=== PATIENT | male | born 1955 | race Caucasian/White ===

== ENCOUNTER 2018-09-24 13:57 | Outpatient (RCR) | payer MEDICARE, BC | END 2018-10-17 | disposition home or self-care (01) | LOC: WCC 13:57 | DX: L97.522 Non-pressure chronic ulcer of other part of left foot with fat layer exposed (principal); T86.821 Skin graft (allograft) (autograft) failure; Z86.718 Personal history of other venous thrombosis and embolism; Z79.899 Other long term (current) drug therapy | CPT/HCPCS: 11042; 15275; 29580; 29581; Q4187 ==

== ENCOUNTER 2018-10-22 10:59 | Outpatient (RCR) | payer MEDICARE, BC | END 2018-11-17 | disposition home or self-care (01) | LOC: WCC 10:59 | DX: L97.522 Non-pressure chronic ulcer of other part of left foot with fat layer exposed (principal); T86.821 Skin graft (allograft) (autograft) failure; Z86.718 Personal history of other venous thrombosis and embolism; Z79.899 Other long term (current) drug therapy | CPT/HCPCS: 15271; 29580; 29581; Q4131 ==

== ENCOUNTER 2018-12-24 10:35 | Outpatient (RCR) | payer MEDICARE, OTHER | END 2019-01-17 | disposition home or self-care (01) | LOC: WCC 10:35 | DX: L97.522 Non-pressure chronic ulcer of other part of left foot with fat layer exposed (principal); T86.821 Skin graft (allograft) (autograft) failure; L97.523 Non-pressure chronic ulcer of other part of left foot with necrosis of muscle; Z86.718 Personal history of other venous thrombosis and embolism; Z79.899 Other long term (current) drug therapy | CPT/HCPCS: 11043; 97605 ==

== ENCOUNTER 2019-01-21 10:59 | Outpatient (RCR) | payer MEDICARE, OTHER | END 2019-02-16 | disposition home or self-care (01) | LOC: WCC 10:59 | DX: L97.522 Non-pressure chronic ulcer of other part of left foot with fat layer exposed (principal); T86.821 Skin graft (allograft) (autograft) failure; L97.523 Non-pressure chronic ulcer of other part of left foot with necrosis of muscle; Z86.718 Personal history of other venous thrombosis and embolism; Z79.899 Other long term (current) drug therapy | CPT/HCPCS: 11043; 15275; 29580; G0463; Q4187 ==

== ENCOUNTER 2019-03-22 09:40 | Outpatient (RCR) | payer MEDICARE, OTHER | END 2019-04-19 | disposition home or self-care (01) | LOC: WCC 09:40 | DX: L97.522 Non-pressure chronic ulcer of other part of left foot with fat layer exposed (principal); T86.821 Skin graft (allograft) (autograft) failure; L97.523 Non-pressure chronic ulcer of other part of left foot with necrosis of muscle; L03.116 Cellulitis of left lower limb; Z86.718 Personal history of other venous thrombosis and embolism | CPT/HCPCS: 11042; 29580 ==

== ENCOUNTER 2019-04-22 09:38 | Outpatient (RCR) | payer MEDICARE, OTHER | END 2019-05-18 | disposition home or self-care (01) | LOC: WCC 09:38 | DX: L97.522 Non-pressure chronic ulcer of other part of left foot with fat layer exposed (principal); T86.821 Skin graft (allograft) (autograft) failure; L97.523 Non-pressure chronic ulcer of other part of left foot with necrosis of muscle; L03.116 Cellulitis of left lower limb; I82.492 Acute embolism and thrombosis of other specified deep vein of left lower extremity; Z86.718 Personal history of other venous thrombosis and embolism | CPT/HCPCS: 11042; 29580; 93925; 93970; 93971 ==

== ENCOUNTER 2019-04-22 13:02 | Outpatient (CLI) | payer MEDICARE, OTHER ==
--- NOTE | 2019-04-22 16:18 | Diagnostic Imaging Report ---
Indication: Left lower extremity pain and swelling. Technique: Duplex Doppler imaging performed from the left common femoral vein to the popliteal vein. FINDINGS: Normal compressibility demonstrated from the common femoral vein to the superficial femoral vein. Respiratory phasicity and good augmentation demonstrated on waveform analysis. There is no evidence of thrombosis. There is a wall adherent thrombus within part of the popliteal vein. This is likely chronic thrombus. No evidence of acute thrombosis. 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
== END 2019-04-22 15:02 | disposition home or self-care (01) ==
LOC: VAS 13:02
DX: M79.662 Pain in left lower leg (principal); R22.42 Localized swelling, mass and lump, left lower limb; I82.532 Chronic embolism and thrombosis of left popliteal vein
CPT/HCPCS: 93971

== ENCOUNTER 2019-05-03 12:56 | Outpatient (CLI) | payer MEDICARE, OTHER ==
--- NOTE | 2019-05-06 10:13 | Diagnostic Imaging Report ---
Indication: Nonhealing wound in left leg Technique: Grayscale and duplex images of the right lower extremity arteries Comparison: none Findings: Bilaterally, triphasic waveforms with sharp systolic peaks are seen at all levels including distally. No focal flow velocity elevation and no mendez scale abnormality to suggest significant stenosis. Impression: No sonographic evidence of lower extremity arterial insufficiency bilaterally
== END 2019-05-03 14:56 | disposition home or self-care (01) ==
LOC: VAS 12:56
DX: S81.802A Unspecified open wound, left lower leg, initial encounter (principal); S81.801A Unspecified open wound, right lower leg, initial encounter; X58.XXXA Exposure to other specified factors, initial encounter; Y92.9 Unspecified place or not applicable
CPT/HCPCS: 93925

== ENCOUNTER 2019-05-15 11:17 | Outpatient (CLI) | payer MEDICARE, OTHER ==
--- NOTE | 2019-05-16 10:25 | Diagnostic Imaging Report ---
Indication: Varicose veins, suspect. Greater saphenous vein reflux, history of lower extremity edema and wound Technique: Grayscale and duplex images of the bilateral greater saphenous veins Comparison: April 22, 2019 conventional one. Venous imaging Findings: On the right, greater saphenous vein demonstrates reflux, with periods of reflux lasting up to 3 seconds. This occurs downstream at and above the knee. There is edema of the subcutaneous fat. On the left, the greater saphenous vein is patent, demonstrates periods of reflux lasting up to 2.5 seconds. There is edema of the subcutaneous fat Impression: Positive for significant bilateral greater saphenous vein reflux
== END 2019-05-15 13:17 | disposition home or self-care (01) ==
LOC: VAS 11:17
DX: Z79.899 Other long term (current) drug therapy (principal)
CPT/HCPCS: 93970

== ENCOUNTER 2019-05-20 10:00 | Outpatient (RCR) | payer MEDICARE, OTHER | END 2019-06-18 | disposition home or self-care (01) | LOC: WCC 10:00 | DX: L97.522 Non-pressure chronic ulcer of other part of left foot with fat layer exposed (principal); T86.821 Skin graft (allograft) (autograft) failure; L97.523 Non-pressure chronic ulcer of other part of left foot with necrosis of muscle; L03.116 Cellulitis of left lower limb; I82.492 Acute embolism and thrombosis of other specified deep vein of left lower extremity; Z86.718 Personal history of other venous thrombosis and embolism; Z79.899 Other long term (current) drug therapy | CPT/HCPCS: 11042; G0463 ==

== ENCOUNTER 2019-07-30 21:56 | Emergency (ER) | payer MEDICARE, OTHER ==
[~2019-07-30] VITALS: Ht 182.9 cm; Wt 74.8 kg
--- NOTE | 2019-07-30 22:24 | NUR ---
ED Nurse Note: Patient walked into ED from home d/t medication refill for subutex. Patient aao x 4 and ambulatory with steady gait. Patient no c/o pain. Stable upon assessment.
[2019-07-30 22:25] VITALS: BP 135/72
--- NOTE | 2019-07-30 22:43 | NUR ---
ED Nurse Note: ERMD at bedside
[2019-07-30] MEDS ORDERED: BUPRENORPHINE HC8 MG SL (22:49)
[2019-07-30] MEDS ORDERED: OXYCONTIN60 MG ORAL (23:10)
--- NOTE | 2019-07-30 23:10 | Emergency Room Report ---
History of Present Illness General Chief Complaint: Medication Refill Source: Patient, Medical Record Present Illness HPI This is a 64-year-old male with a history of chronic pain. He takes Subutex 3 times a day. He said he ran out of Subutex. He get his mail order 270 tablets of 8 mg each. It supposed to last him 3 months. He said he is on his second month and he has no more. It turned out that the pharmacy gave him too much of the modafinil. He still has 3 extra bottles of it. Patient denies any withdrawal symptoms at this moment. No fever chills but no nausea no vomiting. He has been consistent with his prescription form [address] provider. The provider is Dr. Jeffery Husain. Patient has no other complaints. Allergies: Coded Allergies: No Known Allergies (Verified Allergy, Unknown, 01/11/08) COVID-19 Screening Contact w/high risk pt: No Recent Travel to affected area: No Experienced COVID-19 symptoms?: No Patient History Past Medical History: see triage record, old chart reviewed Past Surgical History: other Pertinent Family History: none Social History: Denies: smoking Immunizations: other Reviewed Nursing Documentation: PMH: Agreed; PSxH: Agreed Nursing Documentation-PMH Hx Hypertension: Yes Review of Systems Eye: Denies: eye pain, blurred vision ENT: Denies: ear pain, nose congestion, throat swelling Respiratory: Denies: cough, shortness of breath Cardiovascular: Denies: chest pain, palpitations Gastrointestinal: Denies: abdominal pain, diarrhea, nausea, vomiting Musculoskeletal: Denies: back pain, joint pain Skin: Denies: rash Neurological: Denies: headache, numbness Endocrine: Denies: increased thirst, increased urine Hematologic/Lymphatic: Denies: easy bruising All Other Systems: negative except mentioned in HPI Physical Exam Vital Signs Date Time Temp Pulse Resp B/P (MAP) Pulse Ox O2 Delivery O2 Flow Rate FiO2 07/30/19 22:12 97.7 76 18 137/70 (92) 99 Room Air Vitals normal Sp02 EP Interpretation: reviewed, normal General Appearance: well appearing, no apparent distress, alert Head: normocephalic, atraumatic Eyes: bilateral eye PERRL, bilateral eye EOMI ENT: hearing grossly normal, normal pharynx Neck: full range of motion, supple, no meningismus Respiratory: chest non-tender, lungs clear, normal breath sounds Cardiovascular #1: regular rate, rhythm, no murmur Gastrointestinal: normal bowel sounds, non tender, no mass, no organomegaly, no bruit, non-distended Musculoskeletal: back normal, normal range of motion, gait/station normal Psychiatric: mood/affect normal Medical Decision Making Diagnostic Impression: Primary Impression: Encounter for medication refill ER Course Patient here for refill on his medication. Unfortunately, I do not have the EMERALD exemption for Suboxone/Subutex. Explained to the patient that his extra bottle of modafinil may actually be Subutex and was just mislabeled. Told him to go back and check it. I will write for another opiate for equivalent of his medication. Last Vital Signs Date Time Temp Pulse Resp B/P (MAP) Pulse Ox O2 Delivery O2 Flow Rate FiO2 07/30/19 22:25 97.9 79 18 135/72 99 Room Air Status: improved Disposition: HOME, SELF-CARE Condition: Stable Scripts Oxycodone Hcl (OXYCONTIN) 60 Mg Tab.er.12h 60 MG ORAL EVERY 12 HOURS, #20 TAB 0 Refills Prov: Samir Hernandez MD 07/30/19 Referrals: Jose Clark MD (PCP) Patient Instructions: Medicine Refill at the Emergency Department Additional Instructions: Check your modafinil bottle to see if it is actually Subutex. Follow-up with your doctor tomorrow for refill your medication if needed. Return if symptoms worsen. Samir Hernandez MD July 30, 2019 23:10
[2019-07-30 23:13] VITALS: BP 132/78
--- NOTE | 2019-07-30 23:13 | NUR ---
ER DISCHARGE NOTE: Patient is cleared to be discharged per ERMD, pt is aox4, on room air, with stable vital signs. pt was given dc and prescription instructions, pt was able to verbalize understanding, pt id band removed. pt is able to ambulate with steady gait. pt took all belongings. pt stable upon discharge.
[2019-07-31] MEDS ORDERED: PERCOCET 10-321 EACH ORAL (01:13)
== END 2019-07-30 23:13 | disposition home or self-care (01) ==
LOC: EMR 22:30
DX: Z76.0 Encounter for issue of repeat prescription (principal); I10 Essential (primary) hypertension
CPT/HCPCS: 99282

== ENCOUNTER 2019-08-19 12:48 | Outpatient (RCR) | payer MEDICARE, OTHER ==
[~2019-08-19 12:48] MED LIST: BUPRENORPHINE HC8 MG SL; OXYCONTIN60 MG ORAL; PERCOCET 10-321 EACH ORAL
== END 2019-09-17 | disposition home or self-care (01) ==
LOC: WCC 12:48
DX: L97.322 Non-pressure chronic ulcer of left ankle with fat layer exposed (principal); T81.31XA Disruption of external operation (surgical) wound, not elsewhere classified, initial encounter; X58.XXXA Exposure to other specified factors, initial encounter; Y92.9 Unspecified place or not applicable; Z86.718 Personal history of other venous thrombosis and embolism
CPT/HCPCS: 11042

== ENCOUNTER 2019-11-04 09:38 | Outpatient (RCR) | payer MEDICARE, OTHER | END 2019-11-18 | disposition home or self-care (01) | LOC: WCC 09:38 | DX: L97.322 Non-pressure chronic ulcer of left ankle with fat layer exposed (principal); M54.31 Sciatica, right side; Z86.718 Personal history of other venous thrombosis and embolism | CPT/HCPCS: 11042 ==